=== PATIENT | female | born 1955 | race Caucasian/White ===

== ENCOUNTER 2020-01-14 12:51 | Outpatient (REF) | payer MEDICARE, SELFPAY | END 2020-01-14 12:52 | disposition home or self-care (01) | LOC: HO.MDS 12:51 | PROVIDERS: PCP Internal Medicine; Visit Provider Psychiatry & Neurology Neurology | DX: G35 Multiple sclerosis (principal) | CPT/HCPCS: 96365 ==

== ENCOUNTER 2020-02-25 10:46 | Outpatient (REF) | payer MEDICARE, SELFPAY | END 2020-02-25 10:47 | disposition home or self-care (01) | LOC: HO.MDS 10:46 | PROVIDERS: PCP Internal Medicine; Visit Provider Psychiatry & Neurology Neurology | DX: G35 Multiple sclerosis (principal) | CPT/HCPCS: 96365; J2930 ==

== ENCOUNTER 2020-04-07 14:22 | Outpatient (REF) | payer MEDICARE, SELFPAY | END 2020-04-07 14:23 | disposition home or self-care (01) | LOC: HO.MDS 14:22 | PROVIDERS: Visit Provider Dentist Pediatric Dentistry | DX: G35 Multiple sclerosis (principal) | CPT/HCPCS: 96365; J2930 ==

== ENCOUNTER 2020-05-18 10:37 | Outpatient (REF) | payer MEDICARE, SELFPAY | END 2020-05-18 10:38 | disposition home or self-care (01) | LOC: HO.MDS 10:37 | PROVIDERS: Visit Provider Psychiatry & Neurology Neurology | DX: G35 Multiple sclerosis (principal) | CPT/HCPCS: 96365 ==

== ENCOUNTER 2020-07-27 12:52 | Outpatient (REF) | payer MEDICARE, SELFPAY | END 2020-07-27 12:53 | disposition home or self-care (01) | LOC: HO.MDS 12:52 | PROVIDERS: Visit Provider Psychiatry & Neurology Neurology | DX: G35 Multiple sclerosis (principal) | CPT/HCPCS: 96365 ==

== ENCOUNTER 2020-09-15 11:24 | Outpatient (REF) | payer MEDICARE, SELFPAY | END 2020-09-15 11:25 | disposition home or self-care (01) | LOC: HO.MDS 11:24 | PROVIDERS: Visit Provider Psychiatry & Neurology Neurology | DX: G35 Multiple sclerosis (principal) | CPT/HCPCS: 96365; J2930 ==

== ENCOUNTER 2020-10-27 13:24 | Outpatient (REF) | payer MEDICARE, SELFPAY | END 2020-10-27 13:25 | disposition home or self-care (01) | LOC: HO.MDS 13:24 | PROVIDERS: Visit Provider Psychiatry & Neurology Neurology | DX: G35 Multiple sclerosis (principal) | CPT/HCPCS: 96365; J2930 ==

== ENCOUNTER 2020-12-21 14:48 | Outpatient (REF) | payer MEDICARE, SELFPAY | END 2020-12-21 14:49 | disposition home or self-care (01) | LOC: HO.MDS 14:48 | PROVIDERS: Visit Provider Psychiatry & Neurology Neurology | DX: G35 Multiple sclerosis (principal) | CPT/HCPCS: 96365; J2930 ==

== ENCOUNTER 2021-03-02 09:25 | Outpatient (REF) | payer MEDICARE, SELFPAY | END 2021-03-02 09:26 | disposition home or self-care (01) | LOC: HO.MDS 09:25 | PROVIDERS: Visit Provider Psychiatry & Neurology Neurology | DX: G35 Multiple sclerosis (principal) | CPT/HCPCS: 96365; J2930 ==

== ENCOUNTER 2021-04-19 12:51 | Outpatient (REF) | payer MEDICARE, SELFPAY | END 2021-04-19 12:52 | disposition home or self-care (01) | LOC: HO.MDS 12:51 | PROVIDERS: Visit Provider Psychiatry & Neurology Neurology | DX: G35 Multiple sclerosis (principal); A69.20 Lyme disease, unspecified | CPT/HCPCS: 96365; J2930 ==

== ENCOUNTER 2021-06-14 10:50 | Outpatient (REF) | payer MEDICARE, SELFPAY | END 2021-06-14 10:51 | disposition home or self-care (01) | LOC: HO.MDS 10:50 | PROVIDERS: Visit Provider Psychiatry & Neurology Neurology | DX: G35 Multiple sclerosis (principal) | CPT/HCPCS: 96365; J2930 ==

== ENCOUNTER 2021-08-10 11:49 | Outpatient (REF) | payer MEDICARE, SELFPAY | END 2021-08-10 11:50 | disposition home or self-care (01) | LOC: HO.MDS 11:49 | PROVIDERS: Visit Provider Psychiatry & Neurology Neurology | DX: G35 Multiple sclerosis (principal) | CPT/HCPCS: 96365; J2930 ==

== ENCOUNTER 2021-10-11 12:50 | Outpatient (REF) | payer MEDICARE, SELFPAY | END 2021-10-11 12:51 | disposition home or self-care (01) | LOC: HO.MDS 12:50 | PROVIDERS: Visit Provider Psychiatry & Neurology Neurology | DX: G35 Multiple sclerosis (principal) | CPT/HCPCS: 96365; J2930 ==

== ENCOUNTER 2021-12-13 13:20 | Outpatient (REF) | payer MEDICARE, SELFPAY | END 2021-12-13 13:21 | disposition home or self-care (01) | LOC: HO.MDS 13:20 | PROVIDERS: Visit Provider Psychiatry & Neurology Neurology | DX: G35 Multiple sclerosis (principal) | CPT/HCPCS: 96365; J2930 ==

== ENCOUNTER 2022-02-22 11:25 | Outpatient (REF) | payer MEDICARE, SELFPAY | END 2022-02-22 11:26 | disposition home or self-care (01) | LOC: HO.MDS 11:25 | PROVIDERS: Visit Provider Psychiatry & Neurology Neurology | DX: G35 Multiple sclerosis (principal) | CPT/HCPCS: 96365; J2930 ==

== ENCOUNTER 2022-04-11 13:50 | Outpatient (REF) | payer MEDICARE, SELFPAY | END 2022-04-11 13:51 | disposition home or self-care (01) | LOC: HO.MDS 13:50 | PROVIDERS: Visit Provider Psychiatry & Neurology Neurology | DX: G35 Multiple sclerosis (principal) | CPT/HCPCS: 96365; J2930 ==

== ENCOUNTER 2022-06-02 11:54 | Outpatient (REF) | payer MEDICARE, SELFPAY | END 2022-06-02 11:55 | disposition home or self-care (01) | LOC: HO.MDS 11:54 | PROVIDERS: Visit Provider Psychiatry & Neurology Neurology | DX: G35 Multiple sclerosis (principal) | CPT/HCPCS: 96365; J2930 ==

== ENCOUNTER 2022-08-09 11:03 | Outpatient (REF) | payer MEDICARE, SELFPAY | END 2022-08-09 11:04 | disposition home or self-care (01) | LOC: HO.MDS 11:03 | PROVIDERS: Visit Provider Psychiatry & Neurology Neurology | DX: G35 Multiple sclerosis (principal) | CPT/HCPCS: 96365; J2930 ==

== ENCOUNTER 2022-09-26 13:38 | Outpatient (REF) | payer MEDICARE, SELFPAY | END 2022-09-26 13:39 | disposition home or self-care (01) | LOC: HO.MDS 13:38 | PROVIDERS: Visit Provider Psychiatry & Neurology Neurology | DX: G35 Multiple sclerosis (principal) | CPT/HCPCS: 96365; J2930 ==

== ENCOUNTER 2022-11-22 11:03 | Outpatient (REF) | payer MEDICARE, SELFPAY | END 2022-11-22 11:04 | disposition home or self-care (01) | LOC: HO.MDS 11:03 | PROVIDERS: Visit Provider Psychiatry & Neurology Neurology | DX: G35 Multiple sclerosis (principal) | CPT/HCPCS: 96365; J2930 ==

== ENCOUNTER 2023-01-24 11:30 | Outpatient (REF) | payer MEDICARE, SELFPAY | END 2023-01-24 11:31 | disposition home or self-care (01) | LOC: HO.MDS 11:30 | PROVIDERS: Visit Provider Psychiatry & Neurology Neurology | DX: G35 Multiple sclerosis (principal) | CPT/HCPCS: 96365; J2930 ==

== ENCOUNTER 2023-03-22 13:21 | Outpatient (REF) | payer MEDICARE, SELFPAY | END 2023-03-22 13:22 | disposition home or self-care (01) | LOC: HO.MDS 13:21 | PROVIDERS: Visit Provider Psychiatry & Neurology Neurology | DX: G35 Multiple sclerosis (principal) | CPT/HCPCS: 96365; J2930 ==

== ENCOUNTER 2023-05-10 12:50 | Outpatient (REF) | payer MEDICARE, SELFPAY | END 2023-05-10 12:51 | disposition home or self-care (01) | LOC: HO.MDS 12:50 | PROVIDERS: Visit Provider Psychiatry & Neurology Neurology | DX: G35 Multiple sclerosis (principal) | CPT/HCPCS: 96365; J2930 ==